=== PATIENT | female | born 1970 | race Caucasian/White ===

== ENCOUNTER 2021-09-08 16:12 | Emergency (ER) | payer OTHER | END 2021-09-08 18:05 | disposition home or self-care (01) | LOC: ER1 16:12 | DX: S80.12XA Contusion of left lower leg, initial encounter (principal); Z88.0 Allergy status to penicillin; W10.9XXA Fall (on) (from) unspecified stairs and steps, initial encounter | CPT/HCPCS: 73590; 73610; 93971; 99284 ==